=== PATIENT | male | born 1980 | race Caucasian/White ===

== ENCOUNTER 2018-09-11 17:20 | Emergency (ER) | payer SELFPAY ==
[~2018-09-11] VITALS: Ht 180.3 cm; Wt 91.6 kg
[2018-09-11 17:32] VITALS: BP 139/82
[2018-09-11] MEDS ORDERED: LIDOCAINE 2% 20 ML MDV ONE (17:52)
[2018-09-11] MEDS ORDERED: LIDOCAINE 2% 20 ML MDV TP ONE (18:00)
[2018-09-11] MEDS ORDERED: HYDROCODONE/APAP 10/325MG 1 EA TABLET ONE (18:23)
--- NOTE | 2018-09-11 18:26 | NUR ---
PT REC'D MEDICATION ORDERED.
[2018-09-11] MEDS ORDERED: HYDROCODONE/APAP 10/325MG 1 EA TABLET PO ONE (18:30)
== END 2018-09-11 18:30 | disposition home or self-care (01) ==
LOC: ER 17:29
DX: S02.2XXA Fracture of nasal bones, initial encounter for closed fracture (principal); S01.21XA Laceration without foreign body of nose, initial encounter; Y04.0XXA Assault by unarmed brawl or fight, initial encounter; Y93.67 Activity, basketball; Y92.310 Basketball court as the place of occurrence of the external cause; Y99.8 Other external cause status
CPT/HCPCS: 12011; 99283; A6402; A6403; J3490